=== PATIENT | male | born 1945 | race Two or more races ===

== ENCOUNTER 2018-01-08 09:40 | Emergency (ER) | payer OTHER, MEDICAID ==
[~2018-01-08] VITALS: Ht 167.6 cm; Wt 95.3 kg
[~2018-01-08 09:40] MED LIST: LISI10TA6
[2018-01-08 10:12] VITALS: BP 152/144
[2018-01-08] MEDS ORDERED: KETOROLAC TROMETH 60MG/2ML VIAL IM ONE (10:45)
== END 2018-01-08 11:40 | disposition home or self-care (01) ==
LOC: ER 09:50
DX: G89.29 Other chronic pain (principal); M54.16 Radiculopathy, lumbar region; M54.5 Low back pain; E11.9 Type 2 diabetes mellitus without complications; I10 Essential (primary) hypertension; Z88.0 Allergy status to penicillin
CPT/HCPCS: 96372; 99283; J1885